=== PATIENT | female | born 1950 | race Caucasian/White ===

== ENCOUNTER 2016-06-08 11:20 | Outpatient (CLI) | payer MEDICARE ==
[2016-06-08 12:56] LABS: #Basophils 0.1 thou/uL (0.0-0.2); #Eosinphils 0.1 thou/uL (0.0-0.7); #Lymphocytes 2.3 thou/uL (1.20-3.40); #Monocytes 0.3 thou/uL (0.11-0.59); #Neutrophils 4.1 thou/uL (1.40-6.50); %Basophils 1.2 % (0.0-1.0); %Lymphocytes 33.3 % (21.0-51.0); %Monocytes 4.4 % (0.0-10.0); %Neutrophils 60.1 % (42.0-75.0); Hemoglobin 14.5 g/dL (12.0-16.0); Mean Corpuscular HGB CONC 33.3 g/dL (32.0-36.0); Mean Corpuscular Hemoglobin 32.5 pg (27.0-31.0); Mean Corpuscular Volume 97.8 fl (81.0-99.0); Mean Platelet Volume 6.4 fL (7.4-10.4); Platelet Count 196 thou/uL (130-400); Red Blood Cell (RBC) Count 4.46 mill/uL (4.20-5.40); White Blood Cell (WBC) Count 6.9 thou/uL (4.8-10.8)
[2016-06-08 13:22] LABS: ALT (SGPT) 26 U/L (0-55); AST (SGOT) 30 U/L (5-34); Albumin 4.3 g/dL (3.4-4.8); Alkaline Phosphatase 80 U/L (40-150); Anion Gap 16 mmol/L (10-20); BUN (Urea Nitrogen) 15 mg/dL (9.8-20.1); Bilirubin, Direct 0.2 mg/dL (0.1-0.3); Bilirubin, Total 0.6 mg/dL (0.2-1.2); Calc. Creatinine Clearance 0 mL/min (70-130); Calcium 10.2 mg/dL (7.8-10.44); Carbon Dioxide 21 mmol/L (23-31); Chloride 108 mmol/L (98-107); Cholesterol 213 mg/dL (< 200 Desired); Estimated GFR-MDRD 67; Glucose 136 mg/dL (80-115); HDL Cholesterol 72 mg/dL (>60 Neg Risk); LDL Cholesterol, Calculated 101 mg/dL; Potassium 4.1 mmol/L (3.5-5.1); Protein, Total 7.2 g/dL (5.8-8.1); Sodium 141 mmol/L (136-145); Triglycerides 198 mg/dL (Less than 150)
[2016-06-08 13:24] LABS: Hemoglobin A1c 5.4 % (4.0-6.0)
== END 2016-06-08 11:21 ==
LOC: NAVSJIPCSP 11:20
PROVIDERS: ATTEND Nurse Practitioner Family
DX: E78.5 Hyperlipidemia, unspecified (principal); I10 Essential (primary) hypertension; E03.9 Hypothyroidism, unspecified; Z79.899 Other long term (current) drug therapy
CPT/HCPCS: 36415; 80048; 80061; 80076; 83036; 84443; 85025

== ENCOUNTER 2016-09-23 11:05 | Outpatient (CLI) | payer MEDICARE ==
[2016-09-23 12:56] LABS: ALT (SGPT) 30 U/L (8-55); AST (SGOT) 40 U/L (5-34); Albumin 4.4 g/dL (3.4-4.8); Alkaline Phosphatase 86 U/L (40-150); Anion Gap 18 mmol/L (10-20); BUN (Urea Nitrogen) 13 mg/dL (9.8-20.1); Bilirubin, Total 0.7 mg/dL (0.2-1.2); Calc. Creatinine Clearance 0 mL/min (70-130); Calcium 10.2 mg/dL (7.8-10.44); Carbon Dioxide 23 mmol/L (23-31); Cardiac Risk 2.8 (Less than 4.5); Chloride 106 mmol/L (98-107); Cholesterol 234 mg/dl (< 200 Desired); Estimated GFR-MDRD 75; Globulin 3.4 g/dL (2.4-3.5); Glucose 102 mg/dL (80-115); HDL Cholesterol 84 mg/dL (>60 Neg Risk); LDL Cholesterol, Calculated 75 mg/dL; Magnesium 1.8 mg/dL (1.6-2.6); Potassium 3.6 mmol/L (3.5-5.1); Protein, Total 7.8 g/dL (6.0-8.3); Sodium 143 mmol/L (136-145); Triglycerides 377 mg/dL (Less than 150)
[2016-09-23 14:20] LABS: #Basophils 0.1 thou/uL (0.0-0.2); #Eosinphils 0.1 thou/uL (0.0-0.7); #Lymphocytes 2.8 thou/uL (1.20-3.40); #Monocytes 0.5 thou/uL (0.11-0.59); #Neutrophils 7.4 thou/uL (1.40-6.50); %Basophils 0.9 % (0.0-1.0); %Eosinophils 0.5 % (0.0-10.0); %Monocytes 4.8 % (0.0-10.0); %Neutrophils 67.8 % (42.0-75.0); Hemoglobin 15.7 g/dL (12.0-16.0); Mean Corpuscular HGB CONC 32.7 g/dL (32.0-36.0); Mean Corpuscular Hemoglobin 31.3 pg (27.0-31.0); Mean Corpuscular Volume 95.7 fl (81.0-99.0); Mean Platelet Volume 5.7 fL (7.4-10.4); Platelet Count 214 thou/uL (130-400); RBC Distribution Width 12.3 % (11.5-14.5); White Blood Cell (WBC) Count 10.9 thou/uL (4.8-10.8)
== END 2016-09-23 11:06 ==
LOC: NAVSJIPCSP 11:05
DX: R19.4 Change in bowel habit (principal)
CPT/HCPCS: 36415; 80053; 80061; 83735; 84443; 85025

== ENCOUNTER 2017-10-26 10:53 | Outpatient (CLI) | payer MEDICARE, OTHER ==
[~2017-10-26 10:53] MED LIST: Iopamidol 370 76% 100 ML VIAL ONE
--- NOTE | 2017-10-26 11:49 | CT ---
CT OF THE ABDOMEN ONLY WITH CONTRAST: COMPARISON: None. HISTORY: Chronic diarrhea. TECHNIQUE: Multiple contiguous axial images were obtained in a CT of the abdomen only with contrast. Oral contr ast was administered. Coronal reformats were performed. The pelvis was not imaged. FINDINGS: The liver, gallbladder, right kidney, adrenal glands, spleen, and pancreas are unremarkable. A 1.3 c m hypodensity in the left kidney likely represents a cyst. The visualized large and small bowel are unremarkable. No free air, free fluid, or stranding changes are seen in the abdomen. No abdominal adenopathy is seen. Atherosclerotic calcifications are seen in the aorta. Degenerative changes are seen in the spine. The abdominal soft tissues and visualized inferior thora x were unremarkable. IMPRESSION: 1. No evidence of acute intraabdominal/pelvic abnormality. 2. Left renal cyst. POS: [facility]
== END 2017-10-26 10:54 | disposition home or self-care (01) ==
LOC: NAV CT 10:53
PROVIDERS: ATTEND Internal Medicine Gastroenterology
DX: K52.9 Noninfective gastroenteritis and colitis, unspecified (principal); N28.1 Cyst of kidney, acquired
CPT/HCPCS: 74160

== ENCOUNTER 2018-08-27 14:33 | Emergency (ER) | payer MEDICARE, OTHER | END 2018-08-27 15:06 | disposition home or self-care (01) | LOC: NAV ERS 14:33 | DX: R22.0 Localized swelling, mass and lump, head (principal); E03.9 Hypothyroidism, unspecified; E78.5 Hyperlipidemia, unspecified; Z79.899 Other long term (current) drug therapy | CPT/HCPCS: 99283 ==

== ENCOUNTER 2021-11-13 11:21 | Outpatient (CLI) | payer MEDICARE, OTHER | END 2021-11-13 11:22 | disposition home or self-care (01) | LOC: NAV RAD 11:21 | PROVIDERS: ATTEND Family Medicine | DX: M16.11 Unilateral primary osteoarthritis, right hip (principal) ==

== ENCOUNTER 2022-01-01 10:41 | Outpatient (CLI) | payer MEDICARE, OTHER | END 2022-01-01 10:42 | disposition home or self-care (01) | LOC: NAV RAD 10:41 | PROVIDERS: ATTEND Family Medicine | DX: M54.50 Low back pain, unspecified (principal); M47.816 Spondylosis without myelopathy or radiculopathy, lumbar region | CPT/HCPCS: 72100 ==

== ENCOUNTER 2022-11-02 12:58 | Outpatient (CLI) | payer MEDICARE, OTHER | END 2022-11-02 12:59 | disposition home or self-care (01) | LOC: NAV CT 12:58 | PROVIDERS: ATTEND Family Medicine | DX: R17 Unspecified jaundice (principal); R74.01 Elevation of levels of liver transaminase levels; K86.89 Other specified diseases of pancreas; K83.8 Other specified diseases of biliary tract; K82.8 Other specified diseases of gallbladder; M87.9 Osteonecrosis, unspecified | CPT/HCPCS: 74177; Q9967 ==